=== PATIENT | female | born 1935 | race Caucasian/White ===

== ENCOUNTER 2022-08-06 08:15 | Outpatient (CLI) | payer MEDICARE, BC | END 2022-08-06 08:16 | disposition home or self-care (01) | LOC: CSHWCC 08:15 | PROVIDERS: ATTEND Nurse Practitioner Family | DX: I87.312 Chronic venous hypertension (idiopathic) with ulcer of left lower extremity (principal); L97.829 Non-pressure chronic ulcer of other part of left lower leg with unspecified severity; R60.0 Localized edema | CPT/HCPCS: 11042; 97139; 97607; G0463; 99203 ==

== ENCOUNTER 2022-08-13 11:04 | Outpatient (CLI) | payer MEDICARE, BC | END 2022-08-13 11:05 | disposition home or self-care (01) | LOC: CSHWCC 11:04 | PROVIDERS: ATTEND Nurse Practitioner Family | DX: I87.312 Chronic venous hypertension (idiopathic) with ulcer of left lower extremity (principal); L97.829 Non-pressure chronic ulcer of other part of left lower leg with unspecified severity; R60.0 Localized edema ==

== ENCOUNTER 2022-08-20 11:02 | Outpatient (CLI) | payer MEDICARE, BC | END 2022-08-20 11:03 | disposition home or self-care (01) | LOC: CSHWCC 11:02 | PROVIDERS: ATTEND Nurse Practitioner Family | DX: I87.312 Chronic venous hypertension (idiopathic) with ulcer of left lower extremity (principal); L97.829 Non-pressure chronic ulcer of other part of left lower leg with unspecified severity; R60.0 Localized edema ==

== ENCOUNTER 2022-08-27 13:01 | Outpatient (CLI) | payer MEDICARE, BC | END 2022-08-27 13:02 | disposition home or self-care (01) | LOC: CSHWCC 13:01 | PROVIDERS: ATTEND Nurse Practitioner Family | DX: I87.312 Chronic venous hypertension (idiopathic) with ulcer of left lower extremity (principal); L97.829 Non-pressure chronic ulcer of other part of left lower leg with unspecified severity; R60.0 Localized edema | CPT/HCPCS: 11042; 29581 ==

== ENCOUNTER 2022-10-03 13:01 | Outpatient (CLI) | payer MEDICARE, BC | END 2022-10-03 13:02 | disposition home or self-care (01) | LOC: CSHWCC 13:01 | PROVIDERS: ATTEND Nurse Practitioner Family | DX: I87.312 Chronic venous hypertension (idiopathic) with ulcer of left lower extremity (principal); L97.829 Non-pressure chronic ulcer of other part of left lower leg with unspecified severity; R60.0 Localized edema | CPT/HCPCS: 97139; G0463; 99213 ==

== ENCOUNTER 2022-10-03 13:45 | Outpatient (CLI) | payer MEDICARE, BC | END 2022-10-03 13:46 | disposition home or self-care (01) | LOC: CSHRAD 13:45 | PROVIDERS: ATTEND Nurse Practitioner Family | DX: I87.312 Chronic venous hypertension (idiopathic) with ulcer of left lower extremity (principal); L97.829 Non-pressure chronic ulcer of other part of left lower leg with unspecified severity; Z91.81 History of falling | CPT/HCPCS: 99213; G0463 ==